=== PATIENT | female | born 1955 ===

== ENCOUNTER 2024-04-10 06:00 | Day surgery (SDC) | payer OTHER ==
[2024-04-03 08:22] LABS: HEMATOCRIT 37.2 % (36.0-45.00); HEMOGLOBIN 12.8 g/dL (12.0-15.00); MEAN CORPUSCULAR HEMOGLOBIN 27.8 pg (27.00-32.0); MEAN CORPUSCULAR HGB CONC 34.3 g/dl (32.0-36.0); PLATELET COUNT 220 K/uL (150-450); RED BLOOD COUNT 4.59 M/uL (4.00-6.00); RED CELL DISTRIBUTION WIDTH 13.7 % (11.5-14.5)
[2024-04-03 08:44] LABS: INR 0.97; PROTHROMBIN TIME 10.6 SECONDS (9.0-11.5)
[2024-04-03 09:52] LABS: ALBUMIN 4.2 gm/dL (3.4-5.0); CALCIUM 9.6 mg/dL (8.5-10.1); CREATININE SERUM 0.59 mg/dL (0.55-1.02); GFR 100.77; PHOSPHOROUS 3.4 mg/dL (2.5-4.9); POTASSIUM 4.97 mEq/L (3.5-5.1)
[2024-04-10] MEDS ORDERED: POVIDONE-IODINE 118 ML BOTT TOP ONE ×2 (06:53→08:45)
[2024-04-10] MEDS ORDERED: DEXAMETHASONE SODIUM PHOSPHATE 4 MG/ML VIAL ONE (06:53)
[2024-04-10] MEDS ORDERED: EPINEPHRINE HCL/PF 1 MG/ML AMPUL ONE (06:53)
[2024-04-10] MEDS ORDERED: LIDOCAINE HCL 1%/EPINEPHRINE 20ML VIAL IJ ONE ×2 (06:54→08:45)
[2024-04-10] MEDS ORDERED: CEFAZOLIN SODIUM 1,000 MG VIAL ONE (07:07)
[2024-04-10] MEDS ORDERED: BACITRACIN 28.35 GM OINT.TUBE TOP ONE (08:45)
[2024-04-10] MEDS ORDERED: CEFAZOLIN SODIUM 1,000 MG VIAL IV ONE (08:45)
[2024-04-10] MEDS ORDERED: CIPROFLOXACIN HCL 0.175 MG/DR DROPS OTIC ONE (08:45)
[2024-04-10] MEDS ORDERED: EPINEPHRINE HCL/PF 1 MG/ML AMPUL IR ONE (08:45)
[2024-04-10] MEDS ORDERED: CORTISPORIN EAR10 M1 OTIC (08:54)
[2024-04-10] MEDS ORDERED: CEPHALEXIN500 MG PO (08:54)
[2024-04-10] MEDS ORDERED: ONDANSETRON HCL 2 MG/ML VIAL ONE (09:49)
[2024-04-10] MEDS ORDERED: ONDANSETRON HCL 2 MG/ML VIAL IV ONE (09:50)
== END 2024-04-10 11:20 | disposition home or self-care (01) ==
LOC: CIR.AMB 06:00
PROVIDERS: ATTEND Otolaryngology Otology & Neurotology
DX: H72.02 Central perforation of tympanic membrane, left ear (principal); H90.12 Conductive hearing loss, unilateral, left ear, with unrestricted hearing on the contralateral side; H74.312 Ankylosis of ear ossicles, left ear